=== PATIENT | male | born 1950 | race Caucasian/White ===

== ENCOUNTER 2017-06-19 17:46 | Emergency (ER) | payer MEDICARE, OTHER ==
[2017-06-19 17:59] VITALS: BMI 37.1
[2017-06-19 18:01] VITALS: TEMP 97.9; O2SAT 95
--- NOTE | 2017-06-19 19:49 | C.PDOC ---
History Of Present Illness Patient presents to ED with complaints of pain in his right great toe after hurting it on Thursday. Associated symptoms include pain with movement. Patient denies any other physical complaints. Time Seen by Provider: 06/19/17 19:49 Chief Complaint (Nursing): Lower Extremity Problem/Injury History Per: Patient History/Exam Limitations: no limitations Onset/Duration Of Symptoms: Days (5) Current Symptoms Are (Timing): Still Present Severity: Mild Pain Scale Rating Of: 3 Recent travel outside of the [place]: No Additional History Per: Patient - Ankle/Foot Description Of Injury: Struck Against Object Alleviating Factor(s): Ice Therapy Past Medical History Reviewed: Historical Data, Nursing Documentation, Vital Signs Vital Signs: Last Vital Signs Temp 97.9 F 06/19/17 17:59 Pulse 75 06/19/17 20:35 Resp 20 06/19/17 20:35 BP 121/72 06/19/17 20:35 Pulse Ox 95 06/19/17 20:42 - Medical History PMH: Back Problems, CAD, Depression, HTN, Hypercholesterolemia Family History: States: No Known Family Hx - Social History Hx Tobacco Use: Yes (4 cigarettes a day; quit 10 years ago) Hx Alcohol Use: Yes Hx Substance Use: No - Immunization History Hx Tetanus Toxoid Vaccination: Yes Hx Influenza Vaccination: Yes Hx Pneumococcal Vaccination: Yes Review Of Systems Musculoskeletal: Positive for: Other (Right great toe pain) Skin: Positive for: Bruising Neurological: Negative for: Weakness, Numbness Psych: Negative for: Depression, Suicidal ideation Physical Exam - Physical Exam Appears: Non-toxic, Other (Awake and Alert ) Skin: Rash (From redness of toe ) Extremity: No Pedal Edema, Capillary Refill (Nail region with normal Capillary Refill ), No Deformity, Swelling, Other (Erythema on dorsum of right great toe) Pulses: Right Dorsalis Pedis: Normal Neurological/Psych: Oriented x3 Gait: Steady ED Course And Treatment O2 Sat by Pulse Oximetry: 95 (Room air) Pulse Ox Interpretation: Normal Progress Note: Ordered X-Ray of foot and administered Motrin. Disposition Counseled Patient/Family Regarding: Studies Performed, Diagnosis, Need For Followup, Rx Given - Disposition Referrals: Podiatry Clinic [Outside] Disposition: HOME/ ROUTINE Disposition Time: 19:49 Condition: FAIR Prescriptions: traMADol [Ultram] 50 mg PO TID PRN #12 tab PRN Reason: Pain, Moderate (4-7) Instructions: Toe Fracture (ED) Forms: [employer] (Korean) - Clinical Impression Clinical Impression: Fractured great toe - Scribe Statement The provider has reviewed the documentation as recorded by the Scribamy Lei All medical record entries made by the Románibe were at my direction and personally dictated by me. I have reviewed the chart and agree that the record accurately reflects my personal performance of the history, physical exam, medical decision making, and the department course for this patient. I have also personally directed, reviewed, and agree with the discharge instructions and disposition.
[2017-06-19 20:36] VITALS: BP 121/72; PULSE 75; RESP 20
--- NOTE | 2017-06-23 14:18 | RAD ---
PROCEDURE: Radiographs of the right great toe. TECHNIQUE:: AP radiograph of the right foot, with oblique and lateral view of the right great toe. COMPARISON: None. FINDINGS: BONES: Soft tissue swelling is most pronounced at the medial 1st interphalangeal joint level; here no fracture is appreciated. On the frontal view a lateral nondisplaced trabecular microfracture - JOINTS: Arthrosis- 1st metatarsal-phalangeal and 1st interphalangeal joint. Additional 2nd through 5th interphalangeal joint arthrosis suggested SOFT TISSUES: Most pronounced soft tissue swelling medial 1st interphalangeal joint level OTHER FINDINGS: None. IMPRESSION: No displaced fracture. . No dislocation. Subtle lateral nondisplaced trabecular microfracture - great toe distal phalanx tuft not excluded. . Most of the soft tissue swelling appears medial - 1st distal interphalangeal joint level. Clinical follow-up recommended Multifocal arthrosis
== END 2017-06-19 20:36 | disposition home or self-care (01) ==
LOC: C.ER 17:46
DX: S92.401A Displaced unspecified fracture of right great toe, initial encounter for closed fracture (principal); X58.XXXA Exposure to other specified factors, initial encounter; Y92.9 Unspecified place or not applicable